=== PATIENT | female | born 1975 | race Caucasian/White ===

== ENCOUNTER 2021-06-03 12:45 | Inpatient (IN) | payer OTHER ==
[~2021-06-03] VITALS: Ht 165.1 cm; Wt 89.8 kg
== END 2021-06-07 12:59 | DRG 743 ==
LOC: O/R 06-04 09:10 → OB/GYN 06-04 09:10 → SURH 06-04 12:45 → OB/GYN 06-04 21:33
PROVIDERS: ADMIT Specialist; ATTEND Specialist
PROC: 0UT70ZZ Resection of Bilateral Fallopian Tubes, Open Approach (ICD-10-PCS; 2021-06-04)
PROC: 0UT90ZZ Resection of Uterus, Open Approach (ICD-10-PCS; principal; 2021-06-04 15:45)
DX: N80.0 Endometriosis of uterus (principal); N72 Inflammatory disease of cervix uteri; D25.2 Subserosal leiomyoma of uterus; N84.0 Polyp of corpus uteri; N83.8 Other noninflammatory disorders of ovary, fallopian tube and broad ligament